=== PATIENT | female | born 1960 | race Caucasian/White ===

== ENCOUNTER → 2023-03-24 | Outpatient (CLI) | payer OTHER ==
[2023-03-25 04:06] LABS: RUBELLA AB IGG-REFLAB 4.52 index (Immune >0.99)
[2023-03-25 05:08] LABS: MUMPS VIRUS IGG ANTIBODY <9.0 AU/mL (Immune >10.9)
== END | disposition home or self-care (01) ==
LOC: LABMN 13:49
PROVIDERS: ATTEND Internal Medicine
DX: Z02.1 Encounter for pre-employment examination (principal)
CPT/HCPCS: 86706; 86735; 86762; 86765; 86787